=== PATIENT | male | born 1960 | race Caucasian/White ===

== ENCOUNTER 2017-07-13 22:44 | Emergency (ER) | payer OTHER ==
[2016-01-16 08:41] VITALS: BMI 30.4
[~2017-07-13 22:44] MED LIST: HYZAAR 100-12.51 TAB PO; MOBIC7.5 MG PO; ZYLOPRIM100 MG PO
[2017-07-13 23:43] LABS: BASOPHILS 0 % (0-2); EOSINOPHILS 0 % (0-7); HEMATOCRIT 36.7 % (42.0-54.0); HEMOGLOBIN 12.7 g/dL (13.5-17.5); IMMATURE GRANULOCYTES 0.1 % (0-5); LYMPHOCYTES 8.9 % (15-50); MCHC 34.6 g/dL (31.0-37.0); MCV 86.8 fL (80.0-100.0); MONOCYTES 2.2 % (2-11); NEUTROPHILS 88.8 % (40-80); PLATELET COUNT 211 10x3/uL (130-400); RBC 4.23 10x6/uL (4.20-6.10); RDW 12.5 % (11.5-14.5); WBC 7.7 10x3/uL (4.8-10.8)
[2017-07-13 23:51] LABS: ALBUMIN 3.8 g/dL (3.4-5.0); ANION GAP 2.2 mmol/L (8-16); BILIRUBIN - TOTAL 0.6 mg/dL (0.2-1.3); C-REACTIVE PROTEIN 0.2 mg/dL (0.0-0.9); CALCIUM 8.8 mg/dL (8.5-10.1); CARBON DIOXIDE 27.8 mmol/L (21.0-32.0); CREATININE - SERUM 1.4 mg/dL (0.6-1.3); PROTEIN - SERUM 6.7 g/dL (6.4-8.2)
== END 2017-07-14 01:05 | disposition home or self-care (01) ==
LOC: D.ER 22:44
PROVIDERS: Family Medicine
DX: M79.605 Pain in left leg (principal); M79.604 Pain in right leg; C14.0 Malignant neoplasm of pharynx, unspecified; C02.9 Malignant neoplasm of tongue, unspecified